=== PATIENT | female | born 1935 | race Caucasian/White ===

== ENCOUNTER 2024-07-04 20:36 | Inpatient (IN) | payer MEDICARE, OTHER ==
[~2024-07-04] VITALS: Ht 152.4 cm; Wt 54.9 kg
[~2024-07-04 20:36] MED LIST: AMLODIPINE BESYL5 MG PO; ASPIRIN ADULT L81 M1 PO; ATORVASTATIN CA80 M1 PO; CALCIUM 600-D31 EAC1 PO; CALCIUM CARBON600 M5 PO; FLUVOXAMINE100 MG PO; FLUVOXAMINE50 MG PO; LISINOPRIL10 M1 PO; MEMANTINE HCL10 MG PO; MUCINEX ER600 MG PO; VITAMIN D325 MC1 PO
[2024-07-04 21:43] VITALS: BP 138/64
[2024-07-04] MEDS ORDERED: VENTOLIN 02.5 MG/3 M INH (22:59)
[2024-07-04] MEDS ORDERED: CEROVITE SENIO1 EACH PO (23:02)
[2024-07-04] MEDS ORDERED: REFRESH TEARS15 ML OU (23:02)
[2024-07-04] MEDS ORDERED: EXELON1 EAC2 TD (23:04)
[2024-07-04] MEDS ORDERED: LIPITOR80 MG PO (23:05)
[2024-07-04] MEDS ORDERED: [UNRECOGNIZED DRUG - OTHER] PO (23:11)
[2024-07-05] MEDS ORDERED: MG-AL HYDROXIDE/SIMETICONE 30 ML UDC PO PRN (01:05)
[2024-07-05] MEDS ORDERED: ACETAMINOPHEN 325 MG TAB PO PRN (01:05)
[2024-07-05] MEDS ORDERED: Magnesium Hydroxide 30 ML UDC PO PRN (01:05)
[2024-07-05] MEDS ORDERED: LORazepam 1 MG TAB PO PRN (01:25)
[2024-07-05] MEDS ORDERED: Ziprasidone Mesylate 20 MG VIAL IM PRN (01:30)
[2024-07-05] MEDS ORDERED: Water, Sterile 10 ML VIAL IM PRN (01:30)
[2024-07-05 06:13] LABS: ALKALINE PHOSPHATASE 65 U/L (46-116); BUN 31 mg/dl (9-23); CHLORIDE 103 mmol/L (98-107); CHOLESTEROL 209 mg/dL (<200); LDL CHOLESTEROL 137 mg/dL (9-159); POTASSIUM 4.4 mmol/L (3.4-5.1); SGPT/ALT 31 U/L (5-49); TOTAL PROTEIN 6.5 gm/dL (6.0-8.0); TRIGLYCERIDES 97 mg/dl (<150)
[2024-07-05 06:17] LABS: BASO # 0.1 10*3/uL (0.0-0.1); BASO % 0.8 % (0.0-1.0); EOS # 0.2 10*3/uL (0.0-0.4); EOS % 1.8 % (1.0-4.0); HEMATOCRIT 46.2 % (37.0-47.0); MEAN CELL VOLUME 85.4 fl (81.0-99.0); MEAN CORPUSCULAR HGB 26.6 pg (27.0-31.0); MEAN CORPUSCULAR HGB CONC 31.2 g/dl (33.0-37.0); MEAN PLATELET VOLUME 11.7 fl (9.6-12.3); MONO # 0.5 10*3/uL (0.1-1.0); MONO % 5.7 % (3.0-9.0); NEUT # 7.8 10*3/uL (2.3-7.9); NEUT % 83.7 % (47.0-73.0); PLATELET COUNT AUTOMATED 183 10*3/uL (130-400); RED BLOOD COUNT 5.41 10*6/uL (4.10-5.10); RED CELL DISTRI WIDTH 16.3 % (0-14.5); WHITE BLOOD COUNT 9.3 10*3/uL (4.8-10.8)
[2024-07-05 08:00] VITALS: BP 134/64
[2024-07-05] MEDS ORDERED: Vitamin D 1,000 IU TAB (25 MCG) PO SCH (09:00)
[2024-07-05] MEDS ORDERED: Menthol/Zinc Oxide 4 GM THIN T SCH (09:00)
[2024-07-05] MEDS ORDERED: Memantine Hydrochloride 10 MG TAB PO SCH (10:00)
[2024-07-05] MEDS ORDERED: LISINOPRIL 10 MG TAB PO SCH (10:00)
[2024-07-05] MEDS ORDERED: ATORVASTATIN CALCIUM 80 MG TAB PO SCH (10:00)
[2024-07-05] MEDS ORDERED: RIVASTIGMINE 13.3 MG/24 HR TDM T SCH (10:00)
[2024-07-05] MEDS ORDERED: amLODIPine besylate 5 MG TAB PO SCH (10:00)
[2024-07-05] MEDS ORDERED: ASPIRIN, CHEWABLE 81 MG TAB PO SCH (10:00)
[2024-07-05 14:26] LABS: BILIRUBIN Negative (Negative); BLOOD Negative (Negative); CLARITY Clear (Clear); COLOR Yellow (Yellow); GLUCOSE Negative (Negative); KETONE 1+ (Negative); LEUKO ESTERASE 2+ (Negative); NITRITE Negative (Negative); UROBILINOGEN 0.2 E.U./dl (0.0-1.0)
[2024-07-05 15:07] LABS: BACTERIA TRACE
[2024-07-05 20:00] VITALS: BP 127/59
[2024-07-06 08:20] VITALS: BP 165/67
[2024-07-06] MEDS ORDERED: Glycerin/Hypromellose/Polyet 300 DRP BOT OPH SCH (13:00)
[2024-07-06 19:15] VITALS: BP 153/87
[2024-07-06] MEDS ORDERED: Mirtazapine 15 MG TAB PO SCH (21:00)
[2024-07-07 08:19] VITALS: BP 151/55
[2024-07-07] MEDS ORDERED: ZINC SULFATE 220 MG TAB PO SCH (09:41)
[2024-07-07 20:00] VITALS: BP 113/59
[2024-07-08 07:55] VITALS: BP 132/57
[2024-07-08 20:00] VITALS: BP 142/72
[2024-07-09 08:00] VITALS: BP 145/64
[2024-07-09 20:00] VITALS: BP 129/64
[2024-07-09] MEDS ORDERED: Memantine Hydrochloride 10 MG TAB PO SCH (21:00)
[2024-07-09] MEDS ORDERED: OLANZapine 2.5 MG TAB PO SCH (21:00)
[2024-07-10 06:38] LABS: ALKALINE PHOSPHATASE 66 U/L (46-116); BUN 24 mg/dl (9-23); CHLORIDE 105 mmol/L (98-107); POTASSIUM 3.8 mmol/L (3.4-5.1); SGPT/ALT 21 U/L (5-49); TOTAL PROTEIN 5.5 gm/dL (6.0-8.0)
[2024-07-10 06:48] LABS: BASO # 0.1 10*3/uL (0.0-0.1); BASO % 0.5 % (0.0-1.0); EOS # 0.4 10*3/uL (0.0-0.4); EOS % 3.9 % (1.0-4.0); HEMATOCRIT 44.5 % (37.0-47.0); MEAN CELL VOLUME 87.3 fl (81.0-99.0); MEAN CORPUSCULAR HGB 27.1 pg (27.0-31.0); MEAN PLATELET VOLUME 12.2 fl (9.6-12.3); MONO # 0.6 10*3/uL (0.1-1.0); MONO % 6.1 % (3.0-9.0); NEUT # 8.5 10*3/uL (2.3-7.9); NEUT % 81.1 % (47.0-73.0); PLATELET COUNT AUTOMATED 203 10*3/uL (130-400); RED CELL DISTRI WIDTH 15.9 % (0-14.5); WHITE BLOOD COUNT 10.4 10*3/uL (4.8-10.8)
[2024-07-10 08:00] VITALS: BP 139/57
[2024-07-10 20:00] VITALS: BP 137/72
[2024-07-11 08:00] VITALS: BP 132/65
[2024-07-11 20:00] VITALS: BP 145/57
[2024-07-12 08:04] VITALS: BP 145/64
[2024-07-12 20:00] VITALS: BP 120/68
[2024-07-12] MEDS ORDERED: Mirtazapine 15 MG TAB PO SCH (21:00)
[2024-07-13 06:36] LABS: BUN 17 mg/dl (9-23); CHLORIDE 104 mmol/L (98-107); POTASSIUM 4.1 mmol/L (3.4-5.1)
[2024-07-13 08:00] VITALS: BP 146/69
[2024-07-13 20:00] VITALS: BP 138/56
[2024-07-14 08:00] VITALS: BP 129/75
[2024-07-14] MEDS ORDERED: MED. FROM HOME 1 EACH EA PO SCH (18:00)
[2024-07-14 20:00] VITALS: BP 118/51
[2024-07-15 08:22] VITALS: BP 143/60
[2024-07-15] MEDS ORDERED: [UNRECOGNIZED DRUG - OTHER] PO SCH (09:00)
[2024-07-15 20:00] VITALS: BP 112/70
[2024-07-16 08:19] VITALS: BP 117/81
[2024-07-16] MEDS ORDERED: MED. FROM HOME 1 EACH EA PO SCH (09:00)
[2024-07-16 20:00] VITALS: BP 128/66; BP 132/60
[2024-07-17 08:00] VITALS: BP 137/75
[2024-07-17 20:00] VITALS: BP 118/53
[2024-07-18 08:00] VITALS: BP 118/53
[2024-07-18 20:00] VITALS: BP 132/59
[2024-07-19 01:42] LABS: BILIRUBIN Negative (Negative); BLOOD Negative (Negative); CLARITY Clear (Clear); COLOR Yellow (Yellow); GLUCOSE Negative (Negative); KETONE Negative (Negative); LEUKO ESTERASE 1+ (Negative); NITRITE Negative (Negative); PH 5.5 (4.5-8.0); SPECIFIC GRAVITY 1.025 (1.001-1.030); UROBILINOGEN 0.2 E.U./dl (0.0-1.0)
[2024-07-19 02:27] LABS: URIC ACID CRYSTALS 1+
[2024-07-19 02:28] LABS: BACTERIA TRACE
[2024-07-19 06:47] LABS: BASO # 0.1 10*3/uL (0.0-0.1); BASO % 0.6 % (0.0-1.0); EOS # 0.3 10*3/uL (0.0-0.4); EOS % 3.3 % (1.0-4.0); MEAN CELL VOLUME 88.2 fl (81.0-99.0); MEAN CORPUSCULAR HGB 26.5 pg (27.0-31.0); MEAN PLATELET VOLUME 11.8 fl (9.6-12.3); MONO # 0.6 10*3/uL (0.1-1.0); MONO % 7.5 % (3.0-9.0); NEUT # 6.1 10*3/uL (2.3-7.9); NEUT % 76.8 % (47.0-73.0); PLATELET COUNT AUTOMATED 206 10*3/uL (130-400); RED CELL DISTRI WIDTH 15.7 % (0-14.5)
[2024-07-19 07:18] LABS: ALKALINE PHOSPHATASE 67 U/L (46-116); BUN 24 mg/dl (9-23); CHLORIDE 106 mmol/L (98-107); POTASSIUM 4.2 mmol/L (3.4-5.1); SGPT/ALT 15 U/L (5-49); TOTAL PROTEIN 5.6 gm/dL (6.0-8.0)
[2024-07-19 08:33] VITALS: BP 148/62
[2024-07-19 20:00] VITALS: BP 107/54
[2024-07-20 07:50] LABS: ALKALINE PHOSPHATASE 69 U/L (46-116); BUN 21 mg/dl (9-23); CHLORIDE 107 mmol/L (98-107); POTASSIUM 3.9 mmol/L (3.4-5.1); SGPT/ALT 15 U/L (5-49); TOTAL PROTEIN 5.6 gm/dL (6.0-8.0)
[2024-07-20 08:00] VITALS: BP 129/69
[2024-07-20] MEDS ORDERED: Rivastigmine Tartrate 3 MG CAP PO SCH (18:00)
[2024-07-20 20:00] VITALS: BP 126/53
[2024-07-21 08:00] VITALS: BP 149/70
[2024-07-21 20:00] VITALS: BP 140/77
[2024-07-21] MEDS ORDERED: ARIPiprazole 5 MG TAB PO SCH (21:00)
[2024-07-22 08:26] VITALS: BP 132/64
[2024-07-22] MEDS ORDERED: droNABinol 2.5 MG CAP PO SCH (16:30)
[2024-07-22 20:00] VITALS: BP 147/59
[2024-07-23 08:00] VITALS: BP 129/68
[2024-07-23 20:00] VITALS: BP 172/74
[2024-07-23] MEDS ORDERED: ARIPiprazole 5 MG TAB PO SCH (21:00)
[2024-07-24 08:00] VITALS: BP 128/74
[2024-07-24 20:00] VITALS: BP 147/43
[2024-07-25 06:13] LABS: BASO # 0.1 10*3/uL (0.0-0.1); BASO % 0.4 % (0.0-1.0); EOS # 0.3 10*3/uL (0.0-0.4); EOS % 2.8 % (1.0-4.0); HEMATOCRIT 43.2 % (37.0-47.0); MEAN CELL VOLUME 85.5 fl (81.0-99.0); MEAN CORPUSCULAR HGB 26.5 pg (27.0-31.0); MEAN PLATELET VOLUME 11.4 fl (9.6-12.3); MONO # 0.9 10*3/uL (0.1-1.0); MONO % 7.8 % (3.0-9.0); NEUT # 8.6 10*3/uL (2.3-7.9); NEUT % 76.5 % (47.0-73.0); PLATELET COUNT AUTOMATED 220 10*3/uL (130-400); RED BLOOD COUNT 5.05 10*6/uL (4.10-5.10); RED CELL DISTRI WIDTH 15.5 % (0-14.5); WHITE BLOOD COUNT 11.2 10*3/uL (4.8-10.8)
[2024-07-25 06:36] LABS: ALKALINE PHOSPHATASE 82 U/L (46-116); BUN 18 mg/dl (9-23); CHLORIDE 102 mmol/L (98-107); POTASSIUM 3.4 mmol/L (3.4-5.1); SGPT/ALT 13 U/L (5-49); TOTAL PROTEIN 5.5 gm/dL (6.0-8.0)
[2024-07-25 08:00] VITALS: BP 144/86
[2024-07-25 08:12] LABS: BILIRUBIN Negative (Negative); BLOOD 2+ (Negative); CLARITY Turbid (Clear); COLOR Yellow (Yellow); GLUCOSE Negative (Negative); KETONE Trace (Negative); LEUKO ESTERASE 3+ (Negative); NITRITE Positive (Negative)
[2024-07-25 10:57] LABS: RBC 21-30 rbc/hpf (0-2); URIC ACID CRYSTALS 1+; WBC TNTC wbc/hpf (0-5)
[2024-07-25 10:58] LABS: BACTERIA 4+
[2024-07-25] MEDS ORDERED: Nitrofurantoin Monohydrate/N 100 MG CAP PO SCH (17:00)
[2024-07-25 20:00] VITALS: BP 153/83
[2024-07-26 06:39] LABS: BASO # 0.1 10*3/uL (0.0-0.1); BASO % 0.6 % (0.0-1.0); EOS # 0.3 10*3/uL (0.0-0.4); EOS % 2.8 % (1.0-4.0); HEMATOCRIT 46.4 % (37.0-47.0); MEAN CELL VOLUME 86.1 fl (81.0-99.0); MEAN CORPUSCULAR HGB 26.7 pg (27.0-31.0); MEAN PLATELET VOLUME 11.5 fl (9.6-12.3); MONO # 0.6 10*3/uL (0.1-1.0); MONO % 5.7 % (3.0-9.0); NEUT % 81.6 % (47.0-73.0); PLATELET COUNT AUTOMATED 237 10*3/uL (130-400); RED BLOOD COUNT 5.39 10*6/uL (4.10-5.10); RED CELL DISTRI WIDTH 15.5 % (0-14.5); WHITE BLOOD COUNT 9.8 10*3/uL (4.8-10.8)
[2024-07-26 06:59] LABS: BUN 16 mg/dl (9-23); CHLORIDE 102 mmol/L (98-107); POTASSIUM 3.5 mmol/L (3.4-5.1)
[2024-07-26 08:28] VITALS: BP 165/73
[2024-07-26] MEDS ORDERED: Nitrofurantoin Monohydrate/N 100 MG CAP PO SCH (10:01)
[2024-07-26] MEDS ORDERED: droNABinol 2.5 MG CAP PO SCH (10:01)
[2024-07-26 20:00] VITALS: BP 166/82
[2024-07-26 22:26] LABS: BILIRUBIN Negative (Negative); BLOOD 2+ (Negative); CLARITY Turbid (Clear); COLOR Dark Yellow (Yellow); GLUCOSE Negative (Negative); KETONE 2+ (Negative); LEUKO ESTERASE 3+ (Negative); NITRITE Positive (Negative)
[2024-07-26 22:34] LABS: BACTERIA 3+; RBC 16-20 rbc/hpf (0-2); WBC 51-100 wbc/hpf (0-5)
[2024-07-27 06:55] LABS: BASO # 0.1 10*3/uL (0.0-0.1); BASO % 0.5 % (0.0-1.0); EOS # 0.2 10*3/uL (0.0-0.4); EOS % 1.1 % (1.0-4.0); HEMATOCRIT 46.9 % (37.0-47.0); MEAN CELL VOLUME 84.4 fl (81.0-99.0); MEAN CORPUSCULAR HGB 26.4 pg (27.0-31.0); MEAN CORPUSCULAR HGB CONC 31.3 g/dl (33.0-37.0); MEAN PLATELET VOLUME 11.5 fl (9.6-12.3); MONO # 0.8 10*3/uL (0.1-1.0); MONO % 5.5 % (3.0-9.0); NEUT % 86.3 % (47.0-73.0); PLATELET COUNT AUTOMATED 255 10*3/uL (130-400); RED BLOOD COUNT 5.56 10*6/uL (4.10-5.10)
[2024-07-27 07:54] LABS: BUN 15 mg/dl (9-23); CHLORIDE 101 mmol/L (98-107); POTASSIUM 3.8 mmol/L (3.4-5.1)
[2024-07-27 08:00] VITALS: BP 145/82
[2024-07-27] MEDS ORDERED: NITROFURANTOIN100 M9 PO (08:07)
[2024-07-27] MEDS ORDERED: ZINC SULFATE50 MG PO (08:07)
[2024-07-27] MEDS ORDERED: MEMANTINE HCL10 MG PO (09:36)
[2024-07-27] MEDS ORDERED: MIRTAZAPINE15 M2 PO (09:36)
[2024-07-27] MEDS ORDERED: ARIPIPRAZOLE5 MG PO (09:36)
[2024-07-27] MEDS ORDERED: RIVASTIGMINE TAR3 M1 PO (09:36)
[2024-07-27] MEDS ORDERED: DRONABINOL2.5 MG PO (09:36)
== END 2024-07-27 10:27 | DRG 885 ==
LOC: 3N 20:36
PROVIDERS: Counselor Professional; Nurse Practitioner Women's Health; Registered Nurse; ADMIT Psychiatry & Neurology Psychiatry; ATTEND Psychiatry & Neurology Psychiatry
PROC: GZHZZZZ Group Psychotherapy (ICD-10-PCS; principal; 2024-07-05)
PROC: GZ51ZZZ Individual Psychotherapy, Behavioral (ICD-10-PCS; 2024-07-05)
DX: F33.2 Major depressive disorder, recurrent severe without psychotic features (principal); J45.909 Unspecified asthma, uncomplicated; I10 Essential (primary) hypertension; F41.9 Anxiety disorder, unspecified; F03.90 Unspecified dementia, unspecified severity, without behavioral disturbance, psychotic disturbance, mood disturbance, and anxiety; E78.2 Mixed hyperlipidemia; E55.9 Vitamin D deficiency, unspecified; Z88.8 Allergy status to other drugs, medicaments and biological substances; Z90.49 Acquired absence of other specified parts of digestive tract; Z98.42 Cataract extraction status, left eye; Z98.41 Cataract extraction status, right eye